=== PATIENT | male | born 1950 | race Caucasian/White ===

== ENCOUNTER 2018-10-03 20:15 | Inpatient (IN) | payer BC, MEDICARE ==
[2018-10-03] MEDS ORDERED: Acetaminophen 325 MG TAB PO PRN (21:18)
[2018-10-03] MEDS: Dexamethasone 4 MG TAB PO SCH (22:11)
[2018-10-03] MEDS: Famotidine 20 MG TAB PO SCH (22:11)
[2018-10-03] MEDS: Nortriptyline HCl 25 MG CAP PO SCH (22:12)
[2018-10-04 01:29] LABS: Bilirubin Negative (Negative); Blood, Urine Negative (Negative); Clarity Clear (Clear); Glucose, Urine (Dipstick) Negative (Negative); Leukocyte Negative (Negative); Nitrite Negative (Negative); Protein, Urine (Dipstick) Negative (Neg-Trace); Urobilinogen 0.2 mg/dL (Less than 2)
[2018-10-04 02:02] LABS: Bacteria/HPF None Seen HPF (None Seen); RBC/HPF 0-3 HPF (0-3); Squamous Epithelial 0-3 HPF (0-3); Urine Culture Reflex No No; WBC/HPF 0-3 HPF (0-3)
[2018-10-04] MEDS: Temazepam 15 MG CAP PO PRN (02:03)
[2018-10-04 06:21] LABS: ALT (SGPT) 92 U/L (8-55); AST (SGOT) 71 U/L (5-34); Albumin 3.7 g/dL (3.4-4.8); Alkaline Phosphatase 115 U/L (40-150); Anion Gap 14 mmol/L (10-20); BUN (Urea Nitrogen) 11 mg/dL (8.4-25.7); Bilirubin, Total 0.4 mg/dL (0.2-1.2); Calc. Creatinine Clearance 148 mL/min (70-130); Calcium 8.9 mg/dL (7.8-10.44); Carbon Dioxide 28 mmol/L (23-31); Chloride 104 mmol/L (98-107); Estimated GFR-MDRD Greater than 90; Globulin 2.9 g/dL (2.4-3.5); Glucose 101 mg/dL (80-115); Potassium 3.7 mmol/L (3.5-5.1); Protein, Total 6.6 g/dL (5.8-8.1); Sodium 142 mmol/L (136-145)
[2018-10-04 06:32] LABS: Eosinophils 2 % (0-10); Hemoglobin 14.7 g/dL (14.0-18.0); Lymphocytes 16 % (21-51); MDiff Complete? YES; Mean Corpuscular Hemoglobin 33.9 pg (27.0-31.0); Mean Corpuscular Volume 99.6 fL (78.0-98.0); Mean Platelet Volume 11.9 fL (7.4-10.4); Monocytes 8 % (0-10); Neutrophil 74 % (42-75); Platelet Count 173 thou/uL (130-400); RBC Distribution Width 11.7 % (11.5-14.5); Red Blood Cell (RBC) Count 4.34 mill/uL (4.70-6.10); White Blood Cell (WBC) Count 9.6 thou/uL (4.8-10.8)
[2018-10-04] MEDS ORDERED: Non-Formulary Item 1 EACH (Losartan Potassium [Cozaar] 100 MG) PO SCH (09:00)
[2018-10-04] MEDS: Dexamethasone 4 MG TAB PO SCH ×4 (09:06→21:26)
[2018-10-04] MEDS: Famotidine 20 MG TAB PO SCH ×2 (09:06→21:26)
[2018-10-04] MEDS: Furosemide 40 MG TAB PO SCH (09:09)
[2018-10-04] MEDS: Losartan 25 MG TAB PO SCH (09:09)
--- NOTE | 2018-10-04 11:30 | HP ---
Admitted to [facility] on the evening of 10/03/2018. CHIEF COMPLAINT: Weakness following resection of a brain tumor. HISTORY OF PRESENT ILLNESS: The patient is a 67-year-old white male, who has a history of hypertension. 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 He was hospitalized at [facility] from 09/19/2018 till 10/03/2018. He presented with sudden onset of inability to talk. His initial evaluation in the emergency room showed a large left frontal tumor. He was admitted to the hospital at [facility], started on IV steroids using Decadron and then was taken to Surgery by neurosurgeon, Dr. Manuel Burns on 09/20/2018, underwent a left frontal craniotomy with resection of the tumor, what the surgeon described as a near-total resection. 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 The patient's postop course was complicated by a dense expressive aphasia, mild hemiplegia on the right. Initially postop, he was intubated, but extubated after 24 hours. Venogram of the lower extremities was done, was negative for any thrombosis. Chest x-ray on 09/23, showed chronic changes of the left hemithorax and elevation of the hemidiaphragm with mild right-sided effusion. A Dobhoff feeding tube was placed. The patient underwent a modified swallow study , which showed laryngeal penetration without kayleen aspiration. The patient gradually improved, became much more alert and talkative. The right-sided weakness much improved, initially was treated with IV Dilantin and Decadron, and this was switched to oral Dilantin and Decadron with intent to taper the Decadron. He improved and was swallowing much better and eating much better. He did have a consultation with Dr. Doan, Radiation Oncology and Dori Ontiveros, [facility] for Oncology, and he would be a candidate for chemotherapy and radiation therapy, the strength and functional capability improved. He will be rechecked by Dr. Doan in 2 or 3 weeks after his rehabilitation. The patient was transferred to [facility] late on the evening of 10/03/2018. The patient was seen early on the morning of 10/04/2018. He was alert and was talkative, able to answer many questions, but still could not provide much of the history of the recent events. I have reviewed all his records. PAST MEDICAL HISTORY: Hospitalized at [facility] from 09/19/2018 to 10/03/2018 for glioblastoma stage IV of the left frontal area that was resected near-total by neurosurgeon, Manuel Burns on 09/20/2018; hypertension; hypercholesterolemia; depression. PAST SURGICAL HISTORY: Left frontal craniotomy, 09/20/2018. PRESENT MEDICATIONS: 1. Dexamethasone 1 mg q.i.d. to be tapered. 2. Pepcid 40 mg a day. 3. Dilantin 100 mg t.i.d. 4. Lasix 40 mg a day. 5. Losartan 100 mg a day. 6. Nortriptyline 100 mg at bedtime. 7. Zocor 80 mg a day. 8. Tylenol 325 mg two every 4 hours as needed. 9. Restoril 15 mg at nighttime p.r.n. sleep. ALLERGIES: NO KNOWN ALLERGIES. REVIEW OF SYSTEMS: CONSTITUTIONAL: The patient said he is not having any pain. The patient has had no recent change in his weight. HEAD AND NECK: The patient denies any headache. EYES, EARS, NOSE, AND THROAT: No complaints. PULMONARY: No complaints. CARDIOVASCULAR: No chest pain. GI: The patient said he has a little soreness in the left upper quadrant. He has had no nausea or vomiting. Bowels have been moving. : The patient has had some trouble with urinary retention. He has had a San catheter and he has had two attempts of removal. The last attempt 2 days ago. There was an 850 mL residual. NEUROPSYCHIATRIC: The patient's right-sided weakness has improved. His speech is markedly improved. He is still having some trouble with understanding. SOCIAL HISTORY: Habits: Alcohol, rarely does he have a drink. Tobacco, none. The patient works as a pharmacist. The patient is and has one child. PHYSICAL EXAMINATION: GENERAL: The patient is a 67-year-old white male, who is lying in bed with head elevated. He is alert, talkative, and appears in no acute distress. VITAL SIGNS: Show a temperature of 97.1, pulse 82, respirations 16, O2 saturation 98% on 2 L, 92% on room air, blood pressure 127/65. His weight is 222. HEENT: His head has a left temporal craniotomy incision that has been closed with althea and is healing well. There is no drainage or redness. Ears, TMs are clear. Eyes, pupils are equal, round, and reactive. Sclerae nonicteric. Nose normal. Mouth and throat, normal. NECK: Carotids are equal and strong. No bruits. Thyroid not enlarged. LUNGS: The patient has good breath sounds. There are some rales at the right posterior base. There is no wheezing and no rhonchi. HEART: Regular rate. No murmurs. ABDOMEN: Soft with no organomegaly or areas of tenderness. EXTREMITIES: There is no edema. SKIN: There is no rash. NEUROLOGIC: The patient is alert, able to answer question. He follows direction pretty well, but often times does not understand what is being asked even with simple questions. His cranial nerves 2 through 12 are intact. He is using all four extremities. Could not quite cooperate enough to really test the strength of the muscles. I did not see any obvious severe weakness on that right side. IMPRESSION: 1. Generalized weakness and deconditioning. a. Following hospitalization and craniotomy for removal of a left frontal brain tumor. 2. Hospitalized at [facility] from 09/19/2018 to 10/03/2018 for brain tumor that was resected and pathology showed glioblastoma, stage IV. 3. Left frontal brain tumor. a. Status post near total resection on 09/20/2018 by neurosurgeon, Dr. Manuel Burns. b.Pathology report from [facility] showed glioblastoma IDH-wild type grade IV under WHO grading. c Presenting with severe expressive aphasia. d.Postoperative had the severe aphasia and mild right hemiparesis that has markedly improved. 4. Hypertension. 5. Hyperlipidemia. 6. Depression. PLAN: The patient has been admitted to [facility] for purpose of physical therapy and occupational therapy. We will continue him on his Decadron, do a slow taper. He is on the oral Dilantin now. I have placed him on sequential compression devices for DVT prophylaxis. We will restart his home medication. He is due to have the althea removed today from the incision of scalp. He is 14 days postop. In 2 to 3 weeks, he will need to be re-evaluated by Dr. Doan, radiation therapist for further disposition of treatment. CODE STATUS: Full code. Job ID: [id number] [facility]
[2018-10-04] MEDS: Mometasone/Formoterol 60 PUFF AER INH SCH (19:43)
[2018-10-04] MEDS: Nortriptyline HCl 25 MG CAP PO SCH (21:26)
[2018-10-05 05:36] LABS: AST (SGOT) 55 U/L (5-34); Albumin 3.8 g/dL (3.4-4.8); Alkaline Phosphatase 139 U/L (40-150); Bilirubin, Direct 0.2 mg/dL (0.1-0.3); Bilirubin, Total 0.3 mg/dL (0.2-1.2); Cardiac Risk 4.9 (Less than 4.5); Cholesterol 277 mg/dl (< 200 Desired); HDL Cholesterol 56 mg/dL (>60 Neg Risk); LDL Cholesterol, Calculated 197 mg/dL; Triglycerides 119 mg/dL (Less than 150)
[2018-10-05 05:41] LABS: ALT (SGPT) 97 U/L (8-55); Protein, Total 6.8 g/dL (5.8-8.1)
[2018-10-05] MEDS: Mometasone/Formoterol 60 PUFF AER INH SCH ×2 (09:15→20:16)
[2018-10-05] MEDS: Losartan 25 MG TAB PO SCH (09:16)
[2018-10-05] MEDS: Dexamethasone 4 MG TAB PO SCH ×4 (09:16→20:16)
[2018-10-05] MEDS: Furosemide 40 MG TAB PO SCH (09:16)
[2018-10-05] MEDS: Famotidine 20 MG TAB PO SCH ×2 (09:19→20:16)
--- NOTE | 2018-10-05 10:50 | PRG ---
DATE OF SERVICE: 10/05/2018 SUBJECTIVE: The patient is sitting up in his bed. He is alert and appears very comfortable. He had no complaint. His was in yesterday and said that he has been on the nortriptyline for a long time is for depression and he does not do well without the medication. This has been continued. Yesterday, he worked with Physical Therapy, did very well with his walking, walked up to 300 feet, 150 feet twice. This morning, he has already walked 300 feet with just caregiver's assist. He requires minimum assistance with transfers. OBJECTIVE: GENERAL: The patient is sitting up in bed, alert, appears comfortable, in no distress. VITAL SIGNS: Show a temperature 97.1, pulse 83, respirations are 16, O2 saturation 93% on room air, blood pressure 150/68. HEAD: The incision over the left temporal area from the craniotomy looks like it is healing well. It is a little pink where the althea were. These were all removed yesterday. Wound appears to be healing well. There is no drainage. LUNGS: Clear. HEART: Regular rate. NEUROLOGIC: The patient is alert. His speech is excellent. He is able to follow us and answer some questions appropriately, but other simple questions he is not able to respond to nor follows sometimes very simple directions. Cannot see any gross focal weakness. ASSESSMENT: 1. Generalized weakness and deconditioning. a. Following hospitalization and craniotomy for removal of a left frontal brain tumor. b. Improved walking up to 300 feet with caregiver's assist. Transferring with minimal assistance as of 10/05/2018. 2. Hospitalized at [facility] from 09/19/2018 to 10/03/2018 for brain tumor that was resected and pathology showed glioblastoma, stage IV. 3. Left frontal brain tumor. a. Status post near total resection on 09/20/2018 by neurosurgeon, Dr. Manuel Burns. b.Pathology report from [facility] showed glioblastoma IDH-wild type grade IV under WHO grading. c Presenting with severe expressive aphasia. d.Postoperative had the severe aphasia and mild right hemiparesis that has markedly improved. 4. Hypertension. 5. Hyperlipidemia. 6. Depression. 7. Urinary retention PLAN: We will continue present care. Continue PT. We will restart him on a statin drug use Crestor 10 mg daily. Cholesterol was 277, LDL 197, triglycerides 119. The patient's TSH was 1.4. Job ID: [id number] MTDD
[2018-10-05 11:31] VITALS: BMI 35.9
[2018-10-05] MEDS: Temazepam 15 MG CAP PO PRN (20:15)
[2018-10-05] MEDS: Nortriptyline HCl 25 MG CAP PO SCH (20:16)
[2018-10-05] MEDS: Rosuvastatin 10 MG TAB PO SCH (20:17)
[2018-10-06] MEDS: Mometasone/Formoterol 60 PUFF AER INH SCH ×2 (05:59→18:19)
[2018-10-06] MEDS: Famotidine 20 MG TAB PO SCH ×2 (08:23→21:17)
[2018-10-06] MEDS: Dexamethasone 4 MG TAB PO SCH ×3 (08:23→21:17)
[2018-10-06] MEDS: Furosemide 40 MG TAB PO SCH (08:23)
[2018-10-06] MEDS: Losartan 25 MG TAB PO SCH (08:24)
--- NOTE | 2018-10-06 14:01 | PRG ---
DATE OF SERVICE: 10/06/2018 SUBJECTIVE: The patient is sitting up on the edge of his bed. He is alert, good speech, and has no complaints. Nurses said they have moved him last night to a room just across from the nursing station, so he can just be watched a little closer. During the night, he tried to get up and has been pulling some of his catheter. He has been doing very well with his physical therapy. He is walking up to 300 feet several times a day with just supervision. He is transferring with just supervision. OBJECTIVE: GENERAL: The patient is sitting up on the side of the bed. He is alert, talkative. His incision on the left temporal area is healing well. The pinkness from the althea is all fading. There is no drainage. VITAL SIGNS: Show a temperature of 98.2, pulse 88, respirations 16, O2 saturations 95% on room air, blood pressure 116/69. LUNGS: Clear. HEART: Regular rate. EXTREMITIES: No edema. LABORATORY DATA: Urine culture taken from the catheter on 10/03 has no growth. ASSESSMENT: 1. Generalized weakness and deconditioning. a. Following hospitalization and craniotomy for removal of a left frontal brain tumor. b. Improved. Walking up to 300 feet several times a day with just supervision. Transferring was supervision as of 10/06/2018. 2. Hospitalized at [facility] from 09/19/2018 to 10/03/2018 for brain tumor that was resected and pathology showed glioblastoma, stage IV. 3. Left frontal brain tumor. a. Status post near total resection on 09/20/2018 by neurosurgeon, Dr. Manuel Burns. b. Pathology report from [facility] showed glioblastoma IDH-wild type grade IV under WHO grading. c Presenting with severe expressive aphasia. d.Postoperative had the severe aphasia and mild right hemiparesis that has markedly improved. e. The patient's speech is excellent. He has excellent generalized strength. No obvious focal weakness. He still has some cognitive dysfunction as of 10/06. 4. Hypertension. 5. Hyperlipidemia. 6. Depression. 7. Urinary retention. a. Has required an indwelling San catheter placed on 10/01. Two previous efforts to remove were unsuccessful. PLAN: Continue PT. Continue present medicines. We will discontinue San catheter. We will reduce his Decadron 4 mg from q.i.d. to three times a day, and then do a continued slow reduction. [facility]: [id number] [facility]
[2018-10-06] MEDS: Rosuvastatin 10 MG TAB PO SCH (21:18)
[2018-10-06] MEDS: Tamsulosin HCl 0.4 MG CAP PO SCH (21:18)
[2018-10-06] MEDS: Nortriptyline HCl 25 MG CAP PO SCH (21:18)
[2018-10-07] MEDS: Mometasone/Formoterol 60 PUFF AER INH SCH ×2 (07:00→19:25)
[2018-10-07] MEDS: Famotidine 20 MG TAB PO SCH ×2 (08:49→21:09)
[2018-10-07] MEDS: Losartan 25 MG TAB PO SCH (08:49)
[2018-10-07] MEDS: Furosemide 40 MG TAB PO SCH (08:49)
[2018-10-07] MEDS: Dexamethasone 4 MG TAB PO SCH ×3 (08:49→21:08)
[2018-10-07] MEDS: Rosuvastatin 10 MG TAB PO SCH (21:08)
[2018-10-07] MEDS: Tamsulosin HCl 0.4 MG CAP PO SCH (21:08)
[2018-10-07] MEDS: Nortriptyline HCl 25 MG CAP PO SCH (21:08)
[2018-10-08] MEDS: Losartan 25 MG TAB PO SCH (08:07)
[2018-10-08] MEDS: Furosemide 40 MG TAB PO SCH (08:07)
[2018-10-08] MEDS: Dexamethasone 4 MG TAB PO SCH ×3 (08:08→20:17)
[2018-10-08] MEDS: Famotidine 20 MG TAB PO SCH ×2 (08:08→20:18)
[2018-10-08] MEDS: Mometasone/Formoterol 60 PUFF AER INH SCH ×2 (08:08→20:18)
[2018-10-08] MEDS: Nortriptyline HCl 25 MG CAP PO SCH (20:18)
[2018-10-08] MEDS: Rosuvastatin 10 MG TAB PO SCH (20:19)
[2018-10-08] MEDS: Tamsulosin HCl 0.4 MG CAP PO SCH (20:19)
[2018-10-08] MEDS: Temazepam 15 MG CAP PO PRN (22:08)
--- NOTE | 2018-10-09 07:43 | PRG ---
DATE OF SERVICE: 10/07/2018 SUBJECTIVE: The patient's San catheter was removed yesterday and it was a while before he voided. He was scanned several times, but did not have any real large amount of residual urine. Later, he has voided and since then has continued to void. He is placed on Flomax. The patient had no complaints, but was trying to ask me about one of this medication and had difficulty to tell me exactly what he needed with prompting and he just wanted assurance that when he goes home he will have the availability of the Symbicort. OBJECTIVE: GENERAL: The patient is sitting up on the side of his bed. He is alert. His speech is normal, easily understood. His incision continues to heal. There is no drainage on the incision through the scalp over the left temporal area. LUNGS: Clear. HEART: Regular rate. EXTREMITIES: There is some mild edema. There is chronic stasis changes of the lower legs from his chronic venous insufficiency and chronic stasis dermatitis. ASSESSMENT: 1. Generalized weakness and deconditioning. a. Following hospitalization and craniotomy for removal of a left frontal brain tumor. b. Improved. Walking up to 300 feet several times a day with just supervision. Transferring was supervision as of 10/07/2018. 2. Hospitalized at [facility] from 09/19/2018 to 10/03/2018 for brain tumor that was resected and pathology showed glioblastoma, stage IV. 3. Left frontal brain tumor. a. Status post near total resection on 09/20/2018 by neurosurgeon, Dr. Manuel Burns. b. Pathology report from [facility] showed glioblastoma IDH-wild type grade IV under WHO grading. c Presenting with severe expressive aphasia. d. Postop complicated by severe aphasia and mild right hemipareses that has resolved. e. The patient's speech is excellent. He has excellent generalized strength. No obvious focal weakness. He still has some cognitive dysfunction as of 10/07. 4. Hypertension. 5. Hyperlipidemia. 6. Depression. 7. Urinary retention. a. Has required an indwelling San catheter placed on 10/01. Two previous efforts to remove were unsuccessful. b. San catheter removed on 10/06/2018, and he is voiding with no difficulty as of 10/07. 8. Venous insufficiency of the lower extremities. 9. Chronic stasis dermatitis of the lower extremities. PLAN: Continue present care. We will use moisturizer on his lower extremities daily. Yesterday met his and daughter and had a chance to visit with his about his present condition. She is hoping to take him home soon. I have told her that he will need to follow up with oncologist or radiation therapist for their recommendations and then they can make a decision whether or not to pursue any treatment or not. Job ID: [id number] MTDD
[2018-10-09] MEDS: Losartan 25 MG TAB PO SCH (08:19)
[2018-10-09] MEDS: Mometasone/Formoterol 60 PUFF AER INH SCH ×2 (08:20→20:27)
[2018-10-09] MEDS: Famotidine 20 MG TAB PO SCH ×2 (08:20→20:27)
[2018-10-09] MEDS: Furosemide 40 MG TAB PO SCH (08:20)
[2018-10-09] MEDS: Dexamethasone 4 MG TAB PO SCH ×3 (08:20→20:27)
--- NOTE | 2018-10-09 13:01 | PRG ---
DATE OF SERVICE: 10/09/2018 SUBJECTIVE: The patient says he is feeling good this morning. He has had no trouble with his urination. His strength is improving. His appetite has been good. OBJECTIVE: GENERAL: The patient is resting in bed, but he is alert, talkative, speech is easily understood. VITAL SIGNS: Show temperature 98.6, pulse 85, respirations 22, his O2 saturation is 93% on room air, and blood pressure 146/69. LUNGS: Clear with good breath sounds. HEART: Regular rate. LOWER EXTREMITIES: No edema, but he has a chronic bluish discoloration from the chronic stasis and venous insufficiency. SKIN: Though is intact and supple and soft. ASSESSMENT: 1. Generalized weakness and deconditioning. a. Following hospitalization and craniotomy for removal of a left frontal brain tumor. b. Improved. Walking up to 300 feet several times a day with just supervision. Transferring was supervision as of 10/09/2018. 2. Hospitalized at [facility] from 09/19/2018 to 10/03/2018 for brain tumor that was resected and pathology showed glioblastoma, stage IV. 3. Left frontal brain tumor. a. Status post near total resection on 09/20/2018 by neurosurgeon, Dr. Manuel Burns. b. Pathology report from [facility] showed glioblastoma IDH-wild type grade IV under WHO grading. c Presenting with severe expressive aphasia. d. Postop. The patient had a severe aphasia and mild right hemiparesis that has resolved. e. The patient's speech is excellent. He has excellent generalized strength. No obvious focal weakness. He still has some cognitive dysfunction as of 10/09. 4. Hypertension. 5. Hyperlipidemia. 6. Depression. 7. Urinary retention. a. Has required an indwelling San catheter placed on 10/01. Two previous efforts to remove were unsuccessful. b. Voiding with no difficulty without the catheter as of 10/09. 8. Venous insufficiency of the lower extremity. a. Complicated by chronic stasis changes. b. Stable as of 10/09/2018. PLAN: Continue present care. Continue PT. We will probably be able to discharge the patient this week. Job ID: [id number] [facility]
[2018-10-09] MEDS: Nortriptyline HCl 25 MG CAP PO SCH (20:27)
[2018-10-09] MEDS: Tamsulosin HCl 0.4 MG CAP PO SCH (20:28)
[2018-10-09] MEDS: Rosuvastatin 10 MG TAB PO SCH (20:28)
[2018-10-09] MEDS: Temazepam 15 MG CAP PO PRN (22:44)
[2018-10-10] MEDS: Dexamethasone 4 MG TAB PO SCH ×3 (08:50→20:22)
[2018-10-10] MEDS: Furosemide 40 MG TAB PO SCH (08:51)
[2018-10-10] MEDS: Losartan 25 MG TAB PO SCH (08:51)
[2018-10-10] MEDS: Mometasone/Formoterol 60 PUFF AER INH SCH ×2 (08:51→20:23)
[2018-10-10] MEDS: Famotidine 20 MG TAB PO SCH ×2 (08:51→20:22)
--- NOTE | 2018-10-10 10:20 | PRG ---
DATE OF SERVICE: 10/10/2018 SUBJECTIVE: The patient has no complaint. He is doing better. His speech has been excellent. His strength is better. He is walking further, transferring independently. OT is working with him and teaching him to shower himself and also instructing his how to assist with this. OBJECTIVE: GENERAL: The patient is sitting up in a chair, smiling, appears very comfortable, and in no distress. VITAL SIGNS: Shows a temperature 98.5, pulse 89, respirations 20, O2 saturation 95%, blood pressure 127/64. LUNGS: Clear. HEART: Regular rate. SCALP: The incision over the left temporal area is healing well. There is no redness, no drainage. NEUROLOGIC: The patient is alert, recognizes me. He has normal speech. He has excellent symmetric strength throughout. His understanding is better, but there is still some mild impairment in his ability to follow direction, but much improved. ASSESSMENT: 1. Generalized weakness and deconditioning. a. Following hospitalization and craniotomy for removal of a left frontal brain tumor. b. Improved. Walking up to 300 feet several times a day with just supervision. Transferring was supervision as of 10/10/2018. 2. Hospitalized at [facility] from 09/19/2018 to 10/03/2018 for brain tumor that was resected and pathology showed glioblastoma, stage IV. 3. Left frontal brain tumor. a. Status post near total resection on 09/20/2018 by neurosurgeon, Dr. Manuel Burns. b. Pathology report from [facility] showed glioblastoma IDH-wild type grade IV under WHO grading. c Presenting with severe expressive aphasia. d. Postop. The patient had a severe aphasia and mild right hemiparesis that has resolved. e. The patient's speech is excellent. He has excellent generalized symmetric strength. He still has some mild cognitive dysfunction, but this has improved as of 10/10/18. 4. Hypertension. 5. Hyperlipidemia. 6. Depression. 7. Urinary retention. a. Has required an indwelling San catheter placed on 10/01. Two previous efforts to remove were unsuccessful. b. Voiding with no difficulty without the catheter as of 10/09. 8. Venous insufficiency of the lower extremity. a. Complicated by chronic stasis changes. b. Stable as of 10/10/2018. PLAN: Continue present care. Continue PT and OT. Job ID: [id number] [facility]
[2018-10-10] MEDS: Nortriptyline HCl 25 MG CAP PO SCH (20:23)
[2018-10-10] MEDS: Tamsulosin HCl 0.4 MG CAP PO SCH (20:24)
[2018-10-10] MEDS: Rosuvastatin 10 MG TAB PO SCH (20:24)
[2018-10-10] MEDS: Temazepam 15 MG CAP PO PRN (23:32)
[2018-10-11] MEDS: Losartan 25 MG TAB PO SCH (08:46)
[2018-10-11] MEDS: Mometasone/Formoterol 60 PUFF AER INH SCH ×2 (08:48→20:51)
[2018-10-11] MEDS: Dexamethasone 4 MG TAB PO SCH ×2 (08:48→20:50)
[2018-10-11] MEDS: Famotidine 20 MG TAB PO SCH ×2 (08:49→20:50)
[2018-10-11] MEDS: Furosemide 40 MG TAB PO SCH (08:49)
--- NOTE | 2018-10-11 10:16 | PRG ---
DATE OF SERVICE: 10/11/2018 SUBJECTIVE: The patient said he is feeling fine. He had no complaints this morning. He is doing very well with his therapy. OBJECTIVE: GENERAL: The patient is sitting up on side of the bed. He is alert , talkative, speech is excellent. He appears in no distress. He was trying to tell me that he had a little trouble expressing his thoughts. VITAL SIGNS: Temperature 98, pulse 80, respirations 16, O2 saturation 95% on room air, blood pressure 123/67. HEAD: The incision over the left temporal area continues to heal. There is no drainage. There are a few little scabs, but these are draining, gradually coming off. LUNGS: Clear. HEART: Regular rate. EXTREMITIES: Trace edema that is chronic. Blue hue to the lower legs from the venous insufficiency. NEUROLOGIC: He has no focal weakness. Answers questions most of them appropriately. Has a little bit of trouble expressing some of his thoughts. ASSESSMENT: 1. Generalized weakness and deconditioning. a. Following hospitalization and craniotomy for removal of a left frontal brain tumor. b. Improved. Walking up to 300 feet several times a day with just supervision. Transferring was supervision as of 10/11/2018. 2. Hospitalized at [facility] from 09/19/2018 to 10/03/2018 for brain tumor that was resected and pathology showed glioblastoma, stage IV. 3. Left frontal brain tumor. a. Status post near total resection on 09/20/2018 by neurosurgeon, Dr. Manuel Burns. b. Pathology report from [facility] showed glioblastoma IDH-wild type grade IV under WHO grading. c Presenting with severe expressive aphasia. d. Postop. The patient had a severe aphasia and mild right hemiparesis that has resolved. e. The patient's speech is excellent. He has excellent generalized symmetric strength. He still has some mild cognitive dysfunction, but this has improved as of 10/11/18. 4. Hypertension. 5. Hyperlipidemia. 6. Depression. 7. Urinary retention. a. Has required an indwelling San catheter placed on 10/01. Two previous efforts to remove were unsuccessful. b. Voiding with no difficulty without the catheter as of 10/11/2018. 8. Venous insufficiency of the lower extremity. a. Complicated by chronic stasis changes. b. Stable as of 10/11/2018. PLAN: Continue PT/OT. We will reduce his Decadron 4 mg from 3 times a day to twice a day. The patient is doing well and we will discuss with his and plan a discharge date. Job ID: [id number] MTDD
[2018-10-11] MEDS: Tamsulosin HCl 0.4 MG CAP PO SCH (20:50)
[2018-10-11] MEDS: Nortriptyline HCl 25 MG CAP PO SCH (20:50)
[2018-10-11] MEDS: Rosuvastatin 10 MG TAB PO SCH (20:51)
[2018-10-12] MEDS: Famotidine 20 MG TAB PO SCH ×2 (09:10→22:01)
[2018-10-12] MEDS: Losartan 25 MG TAB PO SCH (09:10)
[2018-10-12] MEDS: Dexamethasone 4 MG TAB PO SCH ×2 (09:11→22:00)
[2018-10-12] MEDS: Furosemide 40 MG TAB PO SCH (09:11)
[2018-10-12] MEDS: Mometasone/Formoterol 60 PUFF AER INH SCH ×2 (09:11→22:03)
--- NOTE | 2018-10-12 10:44 | PRG ---
DATE OF SERVICE: 10/12/2018 SUBJECTIVE: The patient is feeling good this morning. He is doing excellent with his physical therapy. OBJECTIVE: GENERAL: The patient is sitting up on the side of his bed. He is alert. Speech is excellent. He answers questions appropriately. He appears in no distress. VITAL SIGNS: His temperature is 97.7, pulse 80, respirations 16, O2 saturation 95% on room air, blood pressure 118/58. LUNGS: Clear. HEART: Regular rate. HEENT: Head; the left temporal area of the scalp, the incision is healing well. EXTREMITIES: Just trace edema. Chronic stasis changes to the lower legs that are stable. ASSESSMENT: 1. Generalized weakness and deconditioning. a. Following hospitalization and craniotomy for removal of a left frontal brain tumor. b. Improved. Walking up to 300 feet several times a day with just supervision. Transferring was supervision as of 10/12/2018. 2. Hospitalized at [facility] from 09/19/2018 to 10/03/2018 for brain tumor that was resected and pathology showed glioblastoma, stage IV. 3. Left frontal brain tumor. a. Status post near total resection on 09/20/2018 by neurosurgeon, Dr. Manuel Burns. b. Pathology report from [facility] showed glioblastoma IDH-wild type grade IV under WHO grading. c Presenting with severe expressive aphasia. d. Postop. The patient had a severe aphasia and mild right hemiparesis that has resolved. e. The patient's speech is excellent. He has excellent generalized symmetric strength. He still has some mild cognitive dysfunction, but this has improved as of 10/12/18. 4. Hypertension. 5. Hyperlipidemia. 6. Depression. 7. Urinary retention. a. Has required an indwelling San catheter placed on 10/01. Two previous efforts to remove were unsuccessful. b. Voiding with no difficulty without the catheter as of 10/12/2018. 8. Venous insufficiency of the lower extremity. a. Complicated by chronic stasis changes. b. Stable as of 10/12/2018. PLAN: Continue PT. I spoke with the patient's , Aracelis, yesterday evening and plans are being made for the patient's discharge on Tuesday, 10/13. [facility] [id number] [facility]
[2018-10-12] MEDS: Nortriptyline HCl 25 MG CAP PO SCH (22:01)
[2018-10-12] MEDS: Rosuvastatin 10 MG TAB PO SCH (22:02)
[2018-10-12] MEDS: Tamsulosin HCl 0.4 MG CAP PO SCH (22:02)
[2018-10-13 08:34] VITALS: BP 143/68; TEMP 96.6
[2018-10-13] MEDS: Losartan 25 MG TAB PO SCH (10:23)
[2018-10-13] MEDS: Furosemide 40 MG TAB PO SCH (10:23)
[2018-10-13] MEDS: Famotidine 20 MG TAB PO SCH (10:24)
[2018-10-13] MEDS: Dexamethasone 4 MG TAB PO SCH (10:24)
[2018-10-13] MEDS: Mometasone/Formoterol 60 PUFF AER INH SCH (10:26)
--- NOTE | 2018-10-13 12:08 | DIS ---
DATE OF ADMISSION: 10/03/2018 DATE OF DISCHARGE: 10/13/2018 FINAL DIAGNOSES: 1. Generalized weakness and deconditioning. a. Following hospitalization and craniotomy for removal of a left frontal brain tumor. b. Improved. Walking up to 300 feet several times a day with just supervision. Transferring was supervision as of 10/12/2018. 2. Hospitalized at [facility] from 09/19/2018 to 10/03/2018 for brain tumor that was resected and pathology showed glioblastoma, stage IV. 3. Left frontal brain tumor. a. Status post near total resection on 09/20/2018 by neurosurgeon, Dr. Manuel Burns. b. Pathology report from [facility] showed glioblastoma IDH-wild type grade IV under WHO grading. c Presenting with severe expressive aphasia. d. Postop. The patient had a severe aphasia and mild right hemiparesis that has resolved. e. The patient's speech is excellent. He has excellent generalized symmetric strength. He still has some mild cognitive dysfunction, but this has improved as of 10/12/18. 4. Hypertension. 5. Hyperlipidemia. 6. Depression. 7. Urinary retention. a. Has required an indwelling San catheter placed on 10/01. Two previous efforts to remove were unsuccessful. b. Voiding with no difficulty without the catheter as of 10/12/2018. 8. Venous insufficiency of the lower extremity. a. Complicated by chronic stasis changes. b. Stable as of 10/12/2018. SUMMARY: The patient is a 68-year-old white male, who works as a pharmacist. He has a history of hypertension, hyperlipidemia, depression, venous insufficiency of the lower extremity. The patient was taken to the emergency room on 09/19/2018, because he was not able to speak his evaluation, showed a large tumor with surrounding edema in the left frontal lobe. He was started on IV steroids and was taken to surgery on 09/20/2018 by neurosurgeon, Dr. Manuel Burns. He underwent a near total resection of the tumor. Pathology report from [place] showed a glioblastoma [id number], grade 4 under WHO grading. Postop, he had severe aphasia and right hemiparesis and urinary retention. The aphasia resolved. The right-sided weakness resolved. Attempts to remove the catheter were unsuccessful. He was left with a very large residual and inability to void. His incision was healing well. He seemed to be doing better, but was weak. He was transferred to [facility] to [facility] on 10/03/2018, for continued care for a continued physical therapy and occupational therapy. He was discharged on a tapering dose of Decadron initially at 4 mg b.i.d. During his hospitalization, he made very excellent progress. His right-sided weakness resolved. His speech was excellent. His cognitive capability markedly improved, but there was still evidence of some impairment. At times, he had trouble expressing his thought, and at times, trouble following through with simple directions, but during the hospitalization, this improved. He was gradually tapered on his Decadron 4 mg from 4 days to twice today and this will be continued to be tapered and stopped at home. Physical Therapy worked with him, and he made excellent progress to where he was walking up to 300 feet several times a day with just supervision and no assist device. He was transferring independently with just supervision. Occupational Therapy worked with him and with his , and he did very well with that. His incision over the left temporal area of his scalp was healing well. The althea had all been removed. The patient had no seizures during his hospitalization. His lungs remained clear. By 10/13/2018, his condition improved such that it felt like he could now be managed at home. I visited with his , Mariely, and she was comfortable managing him there. Arrangements will be made for him to see Radiation Therapy, Dr. Doan, oncologist, and neurosurgeon followup, so that the patient and his can discuss options on treatment. During the patient's hospitalization, his San catheter was discontinued. He was placed on tamsulosin. He has been voiding fine since. DISPOSITION: Diet; regular diet. Activities; encourage the patient to stay physically active. Encourage him to walk. The patient should not be driving or operate any heavy mechanical equipment. He is not able to go back to work. MEDICATIONS: 1. Acetaminophen 325 mg two every 4 hours as needed. 2. Decadron 4 mg b.i.d. x 4 days, then reduce to 1 a day for 7 days, then stop. 3. Famotidine 40 mg daily. 4. Furosemide 40 mg daily. 5. Losartan 100 mg daily. 6. Symbicort 160/4.5 two inhalations b.i.d. 7. Nortriptyline 100 mg at bedtime. 8. Dilantin 100 mg t.i.d. 9. Tamsulosin 0.4 mg at bedtime. FOLLOWUP: Arrangements will be made for the patient to see radiation therapist , Dr. Doan, oncologist, and neurosurgeon, Dr. Manuel Burns. He will see him in my office in 2 weeks with a CBC, CMP, and Dilantin level. CODE STATUS: Full code. Job ID: [id number] MTDD
== END 2018-10-13 14:58 | disposition home or self-care (01) | DRG 948 ==
LOC: MADMS 20:15
PROVIDERS: ADMIT Family Medicine; ATTEND Family Medicine
DX: R53.81 Other malaise (principal); R47.01 Aphasia; G81.91 Hemiplegia, unspecified affecting right dominant side; I10 Essential (primary) hypertension; F32.9 Major depressive disorder, single episode, unspecified; E78.00 Pure hypercholesterolemia, unspecified; R33.9 Retention of urine, unspecified; K70.40 Alcoholic hepatic failure without coma; I87.2 Venous insufficiency (chronic) (peripheral); Z79.899 Other long term (current) drug therapy; Z85.841 Personal history of malignant neoplasm of brain
CPT/HCPCS: 36415; 80053; 80061; 80076; 81001; 84443; 85007; 85027; 87086; 94640; J7620; J8540

== ENCOUNTER 2018-10-24 08:22 | Emergency (ER) | payer BC, MEDICARE, OTHER ==
[2018-10-24 09:02] LABS: #Basophils 0.2 thou/uL (0.0-0.2); #Eosinphils 0.1 thou/uL (0.0-0.7); #Lymphocytes 1.3 thou/uL (1.20-3.40); #Monocytes 0.9 thou/uL (0.11-0.59); #Neutrophils 9.2 thou/uL (1.40-6.50); %Basophils 1.4 % (0.0-1.0); %Eosinophils 1.1 % (0.0-10.0); %Monocytes 7.7 % (0.0-10.0); %Neutrophils 78.8 % (42.0-75.0); Hemoglobin 15.6 g/dL (14.0-18.0); Mean Corpuscular HGB CONC 33.8 g/dL (32.0-36.0); Mean Corpuscular Hemoglobin 33.4 pg (27.0-31.0); Mean Corpuscular Volume 98.7 fL (78.0-98.0); Mean Platelet Volume 9.8 fL (7.4-10.4); Platelet Count 241 thou/uL (130-400); RBC Distribution Width 12.1 % (11.5-14.5); Red Blood Cell (RBC) Count 4.68 mill/uL (4.70-6.10); White Blood Cell (WBC) Count 11.6 thou/uL (4.8-10.8)
[2018-10-24 09:20] LABS: ALT (SGPT) 80 U/L (8-55); AST (SGOT) 50 U/L (5-34); Albumin 3.8 g/dL (3.4-4.8); Alkaline Phosphatase 154 U/L (40-150); Anion Gap 18 mmol/L (10-20); BUN (Urea Nitrogen) 21 mg/dL (8.4-25.7); Bilirubin, Total 0.4 mg/dL (0.2-1.2); Calc. Creatinine Clearance 0 mL/min (70-130); Calcium 9.1 mg/dL (7.8-10.44); Carbon Dioxide 29 mmol/L (23-31); Chloride 99 mmol/L (98-107); Estimated GFR-MDRD 64; Globulin 3.3 g/dL (2.4-3.5); Glucose 129 mg/dL (80-115); Potassium 3.6 mmol/L (3.5-5.1); Protein, Total 7.1 g/dL (5.8-8.1); Sodium 142 mmol/L (136-145)
--- NOTE | 2018-10-24 09:26 | RAD ---
XR Chest 1 View Portable HISTORY: Weakness COMPARISON: 09/22/2018 FINDINGS: The heart size is stable. There is continued elevation of the left hemidiaphragm with adjac ent atelectatic change. No lobar consolidation, pneumothoraces, kayleen pulmonary edema or large effusions are seen.
[2018-10-24 09:55] LABS: Bilirubin Small (Negative); Blood, Urine Negative (Negative); Clarity Clear (Clear); Glucose, Urine (Dipstick) Negative (Negative); Leukocyte Negative (Negative); Nitrite Negative (Negative); Protein, Urine (Dipstick) Negative (Neg-Trace); Urobilinogen 0.2 mg/dL (Less than 2)
--- NOTE | 2018-10-24 10:10 | CT ---
CT BRAIN WITHOUT IV CONTRAST: HISTORY: Weakness. Frequent falls. Prior brain tumor removal. COMPARISON: 09/23/2018 FINDINGS: Postop left frontal craniotomy. Large, poorly circumscribed, low attenuation mass and extensive anam a in the left frontal lobe, showing markedly more mass effect than on the prior study with approximat surekha 1.4 cm of midline shift to the right, whereas it was approximately 0.7 cm of midline shift to the right on the 09/23/2018 study. No evidence for new hemorrhage. Minimal dilatation of the right lat eral ventricle temporal horn. IMPRESSION: Marked increase or worsening of the previously noted left frontal lobe mass and edema with much worse jonn of the mass effect and midline shift to the right from prior study. No evidence of new hemorrha ge. Minimal dilatation of the right lateral ventricle temporal horn. Findings discussed with Dr. Astorga in the emergency room at [facility] at 9:20 a.m. CODE CR POS: SERJIO
[2018-10-24] MEDS ORDERED: Dexamethasone 10 MG/ML VIAL ONE (10:14)
== END 2018-10-24 14:04 | disposition short-term general hospital (02) ==
LOC: MADERS 08:22
DX: R53.1 Weakness (principal); E78.5 Hyperlipidemia, unspecified; I10 Essential (primary) hypertension; F32.9 Major depressive disorder, single episode, unspecified; Z86.73 Personal history of transient ischemic attack (TIA), and cerebral infarction without residual deficits; Z79.899 Other long term (current) drug therapy
CPT/HCPCS: 51701; 70450; 71045; 80053; 81003; 85025; 93005; 96374; J1100